=== PATIENT | female | born 1965 | race Caucasian/White ===

== ENCOUNTER 2016-09-06 09:16 | Emergency (ER) | payer OTHER ==
--- NOTE | 2016-09-06 09:38 | Emergency Department Record ---
History of Present Illness - General Chief complaint: Flank Pain Stated complaint: FLANK PAIN/THINKS HAS KIDNEY STONE Time Seen by Provider: 09/06/16 09:29 Source: Patient Mode of Arrival: Ambulatory Limitations: No limitations - History of Present Illness Initial comments: 51 yo female presents with one week of left flank pain that comes and goes. No fevers or chills. No vomiting or diarrhea. She has a history in the past of renal stones that required removal. No cough or cold symptoms currently. Prior urologist was at [facility] [place]. She has a history of Arnold Chiari Malformation, renal stones. MD Complaint: Other (Flank pain) Onset/Timin -: Week(s) Radiation: L flank, R flank Severity: Moderate Severity scale (1-10): 8 Quality: Aching, Cramping Consistency: Constant Improves with: None Worsens with: None Patient : No Associated Symptoms: Denies other symptoms - Related Data Home Medications Medication Instructions Recorded Confirmed Last Taken Omeprazole [Omeprazole] 10 mg PO QHS 01/01/15 09/06/16 09/05/16 Fluoxetine HCl [Prozac] 40 mg PO DAILY cap 02/17/16 09/06/16 09/05/16 Zolpidem Tartrate [Ambien] 5 mg PO DAILY PRN tab 02/17/16 09/06/16 09/05/16 Bupropion HCl [Wellbutrin Xl] 150 mg PO QD tab 06/14/16 09/06/16 09/05/16 Estradiol/Norethindrone Acet 1 patch TD 2XWEEK patch 06/14/16 09/06/16 09/05/16 [Combipatch 0.05-0.14 Mg Ptch] Previous Rx's Medication Instructions Recorded Cyclobenzaprine HCl [Flexeril] 10 mg PO QHS #20 tab 09/06/16 Allergies Allergy/AdvReac Type Severity Reaction Status Date / Time Sulfa (Sulfonamide Allergy Mild HIVES Unverified 09/06/16 10:21 Antibiotics) clarithromycin [From Biaxin] AdvReac NAUSEA Unverified 09/06/16 10:21 Travel Screening - Travel/Exposure Within Last 30 Days Have you traveled within the last 30 days?: No - Travel/Exposure Within Last Year Have you traveled outside the [place] in the last year?: No - Additonal Travel Details Have you been exposed to anyone with a communicable illness?: No - Travel Symptoms Symptom Screening: None Review of Systems Constitutional: Denies: Chills, Fever, Malaise, Weakness Eyes: Denies: Eye discharge, Eye pain, Photophobia, Vision change ENT: Denies: Congestion, Throat pain Respiratory: Denies: Cough, Dyspnea, Hemoptysis, Stridor, Wheezes Cardiovascular: Denies: Chest pain, Palpitations, Syncope Endocrine: Denies: Fatigue Gastrointestinal: Denies: Abdominal pain, Diarrhea, Nausea, Vomiting Genitourinary: Denies: Dysuria, Urgency Musculoskeletal: Reports: Back pain. Denies: Arthralgia, Joint swelling, Myalgia, Other Neurological: Denies: Confusion, Headache, Numbness, Tremors, Vertigo, Weakness Psychiatric: Denies: Anxiety Hematological/Lymphatic: Denies: Blood Clots, Easy bleeding, Easy bruising, Swollen glands Past Medical History - SOCIAL HISTORY Smoking Status: Never smoker - RESPIRATORY Hx Respiratory Disorders: No - CARDIOVASCULAR Hx Cardio Disorders: No - NEURO Hx Neuro Disorders: Yes Hx Headaches: Yes Hx of Migraines: Yes Comment:: Chiari Malformation - GI Hx GI Disorders: No - Hx Genitourinary Disorders: Yes Hx Kidney Stones: Yes - ENDOCRINE Hx Endocrine Disorders: No Hx Diabetes: (Gestational diabetes) - MUSCULOSKELETAL Hx Musculoskeletal Disorders: No - PSYCH Hx Psych Problems: No - HEMATOLOGY/ONCOLOGY Hx Hematology/Oncology Disorders: No Family Medical History Hx Cancer: Grandparents Hx HTN: Father Hx Stroke: Father Physical Exam - General General Appearance: Alert, Oriented x3, Cooperative, No acute distress Limitations: No limitations - Head Head exam: Normal inspection - Eye Eye exam: Normal appearance. negative: Conjunctival injection - ENT ENT exam: Normal exam Ear exam: Normal external inspection Nasal Exam: Normal inspection Mouth exam: Normal external inspection Teeth exam: Normal inspection Throat exam: Normal inspection - Neck Neck exam: Normal inspection - Respiratory Respiratory exam: Normal lung sounds bilaterally. negative: Respiratory distress - Cardiovascular Cardiovascular Exam: Regular rate, Normal rhythm, Normal heart sounds - GI/Abdominal GI/Abdominal exam: Soft. negative: Diminished bowel sounds, Distended, Pulsatile mass - Rectal Rectal exam: Deferred - exam: Deferred - Extremities Extremities exam: Normal inspection, Full ROM, Normal capillary refill. negative: Tenderness - Back Back exam: Reports: CVA tenderness (L), Full ROM. Denies: Rash noted, Tenderness - Neurological Neurological exam: Alert, Normal gait, Oriented X3 - Psychiatric Psychiatric exam: Normal affect, Normal mood. negative: Anxious, Depressed - Skin Skin exam: Dry, Intact, Normal color, Warm Course Vital Signs 09/06/16 09:22 Temperature 98.5 F Pulse Rate 84 Respiratory 20 Rate Blood Pressure 137/94 Pulse Ox 96 - Reevaluation(s) Reevaluation #1: The labs were reviewed No acute changes The patient has returned from CT The UA is negative for acute changes. 09/06/16 10:24 Reevaluation #2: The CT scan was negative for any acute intra abdominal process. No renal stones. No obstructive uropathy. No acute changes. The results were discussed with the patient We discussed supportive treatment at home and a follow up plan with the PCP if the pain persists. 09/06/16 10:32 Medical Decision Making - Lab Data Result diagrams: 09/06/16 09:50 09/06/16 09:50 Disposition Disposition: Discharge Clinical Impression: Flank pain Disposition: Home, Self-Care Condition: (1) Good Instructions: Flank Pain (ED) Additional Instructions: Return if you have any fever, nausea, vomiting, weakness, numbness or shooting pain Call your doctor for close follow up of your pain if it continues. Prescriptions: Cyclobenzaprine HCl [Flexeril] 10 mg PO QHS #20 tab Referrals: CHUCK HOSKINS [Primary Care Provider] - Forms: Patient Portal Access Time of Disposition: 10:34
[2016-09-06 10:09] LABS: BASO % 0.4 % (0-6); EOS % 3.5 % (0-6); GRAN % 63.9 % (47-80); HEMATOCRIT 39.5 % (35.0-47.0); HEMOGLOBIN 13.2 gm/dl (11.6-16.0); LYMPH % 25.2 % (16-45); MEAN CELL VOLUME 93.6 fl (81-97); MEAN CORPUSCULAR HEMOGLOBIN 31.3 pg (27-33); MEAN CORPUSCULAR HGB CONC 33.4 g/dl (32-36); MEAN PLATELET VOLUME 10.3 fl (7.4-10.4); PLATELET COUNT 196 K/uL (130-400); RED BLOOD COUNT 4.22 M/uL (3.80-5.40); RED CELL DISTRIBUTION WIDTH 13.8 % (11.5-14.5); URINE APPEARANCE CLEAR; URINE BILIRUBIN NEGATIVE (NEGATIVE); URINE BLOOD NEGATIVE (NEGATIVE); URINE COLOR YELLOW; URINE GLUCOSE (UA) NEGATIVE (NEGATIVE); URINE KETONE NEGATIVE (NEGATIVE); URINE LEUKOCYTE ESTERASE NEGATIVE (NEGATIVE); URINE NITRITE NEGATIVE (NEGATIVE); URINE PROTEIN NEGATIVE (NEGATIVE); URINE UROBILINOGEN 0.2 E.U./dL (0.20 - 1.00); WHITE BLOOD COUNT W/O DIFF 5.7 K/uL (4.2-12.2)
[2016-09-06] MEDS ORDERED: KETOROLAC 30 MG/ML VIAL IVP ONE (10:13)
[2016-09-06 10:20] LABS: ANION GAP 12.2 (7-16); BLOOD UREA NITROGEN 13 mg/dL (7-17); CARBON DIOXIDE 24.8 mmol/L (22-30); CREATININE 0.7 mg/dL (0.52-1.04); EST GLOMERULAR FILTRATION RATE > 60 ml/min; GLUCOSE,RANDOM 100 mg/dL (70-110)
--- NOTE | 2016-09-09 13:38 | CT SCAN REPORT ---
EXAM: CT OF THE ABDOMEN AND PELVIS WITHOUT CONTRAST HISTORY: LEFT FLANK PAIN FOR ONE WEEK. KIDNEY STONE HISTORY. TECHNIQUE: Thin collimation helical CT examination of the abdomen and pelvis was performed without oral or intravenous contrast administration. Lack of oral and IV contrast utilization limits evaluation of the bowel and solid viscera respectively. Comparison: CT of the abdomen and pelvis without contrast dated 07/09/14. FINDINGS: There is minor dependent atelectasis in each lung base. The visualized lung bases are otherwise clear and there is no pleural or pericardial effusion. The heart is not enlarged. There is minor elevation of the right hemidiaphragm. The liver, spleen, pancreas, and adrenal glands are normal in appearance. The gallbladder is unremarkable. No biliary ductal dilatation is seen. There is a possible small sliding type hiatal hernia. The kidneys are normal in size, position, and are smoothly marginated. No nephrolithiasis nor renal mass is seen. The right renal collecting system pelvis appears somewhat patulous, slightly more pronounced than on the prior examination though this is not grossly dilated and may just relate to fluid status. No ureteral dilatation nor ureteral calculus is seen. No intrinsic urinary bladder abnormality is identified though evaluation is somewhat limited by lack of distention. The uterus is in the midline. No gross bowel dilatation nor bowel wall thickening. The appendix is not visualized with confidence though no inflammatory changes are noted in its expected location. Mild fat density prominence is noted in each inguinal canal consistent with lipomatous change or less likely fat within small inguinal hernia sacs. No new lytic or blastic bone lesion is seen. IMPRESSION: 1. NO CT EVIDENCE OF NEPHROLITHIASIS NOR OBSTRUCTIVE UROPATHY. NO CT EVIDENCE OF AN ACUTE INTRAABDOMINAL NOR INTRAPELVIC PROCESS. 2. MINOR FAT DENSITY PROMINENCE IN EACH INGUINAL CANAL, UNCHANGED CONSISTENT WITH LIPOMATOUS CHANGE OR LESS LIKELY FAT WITHIN SMALL INGUINAL HERNIA SACS. 3. MILD BIBASILAR ATELECTASIS. JOB NUMBER: [id number] [facility]
== END 2016-09-06 10:48 | disposition home or self-care (01) ==
LOC: ER 09:16
DX: R10.32 Left lower quadrant pain (principal); Z87.442 Personal history of urinary calculi
CPT/HCPCS: 99284 ×2; 96374; 85025; 80048; 81003; 74176; J1885

== ENCOUNTER 2018-10-09 17:23 | Emergency (ER) | payer MEDICAID ==
--- NOTE | 2018-10-09 17:50 | Emergency Department Record ---
History of Present Illness - General Chief complaint: Flank Pain Stated complaint: I THINK I HAVE KIDNEY STONES Time Seen by Provider: 10/09/18 17:43 Source: Patient Mode of Arrival: Ambulatory Limitations: No limitations - History of Present Illness Initial comments: The patient is here due to intermittent flank pain L>R for 4 days associated with mild nausea but no vomiting, fever, or dysuria. The patient has a hx of kidney stones so she called her Urologist who told her to go to the ER. The patient denies any diarrhea, CP, or SOB. MD Complaint: Other Onset/Timin -: Days(s) Severity: Moderate Severity scale (1-10): 8 Quality: Aching, Cramping Consistency: Constant, Intermittent Patient : No - Related Data Allergies Allergy/AdvReac Type Severity Reaction Status Date / Time Sulfa (Sulfonamide Allergy Mild HIVES Verified 10/09/18 17:43 Antibiotics) clarithromycin [From Biaxin] AdvReac NAUSEA Verified 10/09/18 17:43 Travel Screening - Travel/Exposure Within Last 30 Days Have you traveled within the last 30 days?: No - Travel/Exposure Within Last Year Have you traveled outside the [place] in the last year?: No - Additonal Travel Details Have you been exposed to anyone with a communicable illness?: No - Travel Symptoms Symptom Screening: None Review of Systems Constitutional: Denies: Chills, Fever Eyes: Denies: Eye discharge ENT: Denies: Congestion Respiratory: Denies: Cough, Dyspnea Cardiovascular: Denies: Arrhythmia Endocrine: Denies: Fatigue Gastrointestinal: Reports: Nausea. Denies: Diarrhea, Vomiting Genitourinary: Denies: Dysuria Musculoskeletal: Reports: Back pain. Denies: Arthralgia Skin: Denies: Bruising Past Medical History - SOCIAL HISTORY Smoking Status: Former smoker Alcohol Use: Occasional Drug Use: None - RESPIRATORY Hx Respiratory Disorders: No - CARDIOVASCULAR Hx Cardio Disorders: No - NEURO Hx Neuro Disorders: Yes Hx Headaches: Yes Hx of Migraines: Yes Comment:: Chiari Malformation - GI Hx GI Disorders: No Hx Reflux: Yes - Hx Genitourinary Disorders: Yes Hx Kidney Stones: Yes - ENDOCRINE Hx Endocrine Disorders: No Hx Diabetes: (Gestational diabetes) - MUSCULOSKELETAL Hx Musculoskeletal Disorders: No - PSYCH Hx Psych Problems: No Hx Depression: Yes - HEMATOLOGY/ONCOLOGY Hx Hematology/Oncology Disorders: No Family Medical History Any Significant Family History?: Yes Hx Cancer: Grandparents Hx HTN: Father Hx Stroke: Father Physical Exam - General General Appearance: Alert, Oriented x3, Cooperative, No acute distress - Head Head exam: Atraumatic, Normocephalic, Normal inspection - Eye Eye exam: Normal appearance, PERRL, EOMI - ENT Throat exam: Normal inspection. negative: Tonsillar erythema, Tonsillar exudate - Neck Neck exam: Normal inspection, Full ROM. negative: Lymphadenopathy, Meningismus , Tenderness - Respiratory Respiratory exam: Normal lung sounds bilaterally. negative: Respiratory distress - Cardiovascular Cardiovascular Exam: Regular rate, Normal rhythm, Normal heart sounds - GI/Abdominal GI/Abdominal exam: Soft, Normal bowel sounds. negative: Tenderness - Extremities Extremities exam: Normal inspection, Full ROM, Normal capillary refill. negative: Tenderness - Back Back exam: Reports: CVA tenderness (R) (trace.), CVA tenderness (L) (mild.) - Neurological Neurological exam: Alert, Normal gait. negative: Abnormal gait, Motor sensory deficit Course Vital Signs 10/09/18 17:37 Temperature 97.4 F L Pulse Rate 72 Respiratory 20 Rate Blood Pressure 138/82 Pulse Ox 97 - Reevaluation(s) Reevaluation #1: The patient is doing very well at this time. She is resting comfortably with no significant pain or discomfort presently. I did discuss the neg CT and UA for kidney stones or infection and did recommend F/U later this week for recheck. 10/09/18 18:41 Medical Decision Making - Data Complexity MDM Data: Labs Ordered and/or Reviewed, X-Ray Ordered and/or Reviewed - Lab Data Result diagrams: 10/09/18 17:55 10/09/18 17:55 - Radiology Data Radiology results: Report reviewed (CT: Neg for kidney stones or hydro.) Disposition Disposition: Discharge Clinical Impression: Flank pain Disposition: Home, Self-Care Condition: (2) Stable Instructions: Flank Pain (ED) Additional Instructions: Please continue your home pain medicines and drink plenty of fluids. Please see your family doctor later this week for recheck and return to the ER for any worsening symptoms. Forms: Patient Portal Access Time of Disposition: 18:43 Quality - Quality Measures Quality Measures: N/A - Blood Pressure Screening View Details: Yes Does Patient Have Any of the Following: No Blood Pressure Classification: Pre-Hypertensive BP Reading Systolic Measurement: 138 Diastolic Measurement: 82 Screening for High Blood Pressure: < Pre-Hypertensive BP, F/U Documented > [ [id number]] Pre-Hypertensive Follow-up Interventions: Referral to alternative/primary care provider.
[2018-10-09 17:59] LABS: BASO % 0.6 % (0-6); EOS % 3.5 % (0-6); GRAN % 51.7 % (47-80); HEMATOCRIT 37.2 % (35.0-47.0); HEMOGLOBIN 12.3 gm/dl (11.6-16.0); LYMPH % 33.6 % (16-45); MEAN CELL VOLUME 92.3 fl (81-97); MEAN CORPUSCULAR HEMOGLOBIN 30.5 pg (27-33); MEAN CORPUSCULAR HGB CONC 33.1 g/dl (32-36); MONO % 10.6 % (0-9); PLATELET COUNT 191 K/uL (130-400); RED BLOOD COUNT 4.03 M/uL (3.80-5.40); RED CELL DISTRIBUTION WIDTH 14.4 % (11.5-14.5); WHITE BLOOD COUNT W/O DIFF 5.4 K/uL (4.2-12.2)
[2018-10-09 18:00] LABS: URINE APPEARANCE CLEAR; URINE BILIRUBIN NEGATIVE (NEGATIVE); URINE BLOOD TRACE-I (NEGATIVE); URINE COLOR YELLOW; URINE GLUCOSE (UA) NEGATIVE (NEGATIVE); URINE KETONE NEGATIVE (NEGATIVE); URINE LEUKOCYTE ESTERASE NEGATIVE (NEGATIVE); URINE NITRITE NEGATIVE (NEGATIVE); URINE PROTEIN NEGATIVE (NEGATIVE); URINE UROBILINOGEN 0.2 E.U./dL (0.20 - 1.00)
[2018-10-09 18:08] LABS: URINE EPITHELIAL CELLS RARE (FEW); URINE RBC RARE (NONE SEEN); URINE WBC NONE SEEN (0-2/hpf)
[2018-10-09 18:09] LABS: BILIRUBIN,TOTAL < 0.20 mg/dL (0.2-1.0); BLOOD UREA NITROGEN 15 mg/dL (6-20); CREATININE 0.6 mg/dL (0.5-0.9); EST GLOMERULAR FILTRATION RATE > 60 mL/min; TOTAL PROTEIN 6.7 g/dL (6.6-8.7)
[2018-10-09 18:11] LABS: GLUCOSE,RANDOM 88 mg/dL (74-109)
[2018-10-09] MEDS ORDERED: KETOROLAC 30 MG/ML VIAL IVP ONE (18:11)
[2018-10-09 18:14] LABS: ALBUMIN 4.3 g/dL (4.0-5.0); ALKALINE PHOSPHATASE 84 U/L (35-104); ALT/SGPT 30 U/L (<33); AST/SGOT 22 U/L (10.0-35.0); BILIRUBIN,DIRECT < 0.2 mg/dL (0-0.3)
--- NOTE | 2018-10-11 20:21 | CT SCAN REPORT ---
EXAM: CT SCAN ABDOMEN/PELVIS WO CONTRAST HISTORY: BILATERAL FLANK PAIN. TECHNIQUE: Thin-collimation helical CT examination of the abdomen and pelvis is performed without oral or intravenous contrast administration. Lack of oral and IV contrast utilization limits evaluation of the bowel and solid viscera, respectively. COMPARISON: CT abdomen and pelvis without contrast dated 09/06/2016. FINDINGS: Mild dependent atelectasis in each lung base. The lung bases are otherwise clear and there is no pleural or pericardial effusion. The heart is not enlarged. The liver, spleen, pancreas, and adrenal glands are normal in appearance. No definite calcified gallstone or gallbladder wall thickening. No biliary ductal dilatation. The kidneys are normal in size and position and are smoothly marginated. No nephrolithiasis nor renal mass. The renal collecting systems are normal in caliber throughout. No ureteral calculus is identified, though the distal ureters are not well-delineated from adjacent unopacified structures at the level of the pelvis. Several tiny calcifications are again noted scattered within the pelvis, likely vascular in origin. There is also vascular calcification within the gonadal veins, stable. No intraabdominal nor retroperitoneal lymphadenopathy. The abdominal aorta and iliac arteries are normal in caliber. No pelvic mass, lymphadenopathy, or free pelvic fluid. The uterus is near the midline and normal in size. No intrinsic urinary bladder abnormality. No gross bowel dilatation or nor bowel wall thickening. Occasional colonic diverticula are questioned without evidence of diverticulitis. The appendix is not visualized with confidence, though no inflammatory changes are noted in its expected location. Minor fat-density prominence again noted within the inguinal canals consistent with lipomas or less likely fat within small inguinal hernia sacs. No new lytic or blastic bone lesion. A small bone island is again noted within the right sacral ala. There is redemonstration of a tiny fat-filled umbilical hernia. IMPRESSION: 1. NO CT EVIDENCE OF NEPHROLITHIASIS NOR OBSTRUCTIVE UROPATHY. 2. NO CT EVIDENCE OF AN ACUTE INTRAABDOMINAL NOR INTRAPELVIC PROCESS. 3. MINOR DEPENDENT ATELECTASIS IN EACH LUNG BASE. JOB NUMBER: [id number] [facility]
== END 2018-10-09 19:07 | disposition home or self-care (01) ==
LOC: ER 17:23
DX: R10.84 Generalized abdominal pain (principal); R11.0 Nausea; Z87.442 Personal history of urinary calculi
CPT/HCPCS: 74176; 80048; 80076; 81001; 85025; 96374; 99284; J1885

== ENCOUNTER 2019-03-02 07:33 | Day surgery (SDC) | payer MEDICAID ==
[2019-03-02] MEDS ORDERED: PROPOFOL 10 MG/ML VIAL IV ONE (07:34)
[2019-03-02] MEDS ORDERED: LIDOCAINE 2% MDV (20MG/ML) 20ML VIAL IV ONE (07:34)
[2019-03-02] MEDS ORDERED: FENTANYL PF 100MCG/2ML VIAL IV ONE (07:34)
--- NOTE | 2019-03-05 13:00 | Operative Note ---
SURGEON: Alexander Stark MD OPERATION: 1. ESOPHAGOGASTRODUODENOSCOPY. 2. COLONOSCOPY. INDICATIONS: This is a 53-year-old female with long-term history of gastroesophageal reflux disease and average risk for colorectal cancer who presented for both esophagogastroduodenoscopy and colonoscopy. POSTOPERATIVE DIAGNOSES: 1. Normal esophagus. 2. Mild gastritis. 3. Normal duodenum. 4. Normal colonic and terminal ileal mucosa. ANESTHESIA: Sedation is per Anesthesia. Pulse oximetry was monitored throughout the procedure to maintain O2 saturation of 90% or greater. Supplemental oxygen was administered via nasal cannula. Cardiac and vital signs were monitored throughout the duration of the procedure, and they were stable. The procedures of esophagogastroduodenoscopy and colonoscopy and risks and benefits of the procedures, including the risk of bleeding and perforation, among others, were explained to the patient who voiced understanding and agreed to have the procedures done. Physical examination was performed, and the patient was found stable for sedation. PROCEDURE: The patient was placed in the left lateral position. Sedation was initiated. A plastic bite block was inserted into the oral cavity. The Olympus [id number] gastroscope was introduced into the oral cavity and advanced to the proximal esophagus without difficulty. The esophageal mucosa was carefully examined upon introduction of the gastroscope. The proximal and mid and distal esophageal mucosa appeared normal. The gastroscope was then advanced into the stomach, and surveillance of the stomach revealed mild erythema along the gastric body and antrum but no ulcers were noted. The gastroscope was then advanced to the descending duodenum without difficulty. The duodenal bulb and descending duodenum appeared normal. The gastroscope was then withdrawn into the stomach and retroflexion was performed. There were no other lesions noted. The gastroscope was then withdrawn while carefully examining the gastric and esophageal mucosa. No other lesions noted. Multiple gastric biopsies were obtained. The patient remained with stable vital signs and was repositioned for colonoscopy. A digital rectal exam was performed and showed some mild external hemorrhoids with no palpable rectal masses. An Olympus [id number]-180AL colonoscope was inserted into the rectum under direct visualization. It was advanced to the cecum without difficulty. The ileocecal valve and appendiceal orifice were identified and photographed. The colonic mucosa was carefully examined upon introduction of the colonoscope. There were no lesions noted. The colonoscope was then withdrawn while carefully examining the colonic mucosal surfaces. No lesions were noted. In the rectum, retroflexion was performed and grade 1 internal hemorrhoids were noted. The colonoscope was then withdrawn and the procedures were terminated. The patient tolerated the procedure well without any immediate complications. The patient remained with stable vital signs and was transferred to the recovery room. RECOMMENDATIONS: 1. The patient should be on a high-fiber diet. 2. The patient is to have a repeat colonoscopy for screening in 10 years. Thank you for allowing me to participate in the care of your patient. ALICE
== END 2019-03-02 09:13 | disposition home or self-care (01) ==
LOC: HOP 07:33
PROVIDERS: ATTEND Internal Medicine Gastroenterology
DX: Z12.11 Encounter for screening for malignant neoplasm of colon (principal); K21.9 Gastro-esophageal reflux disease without esophagitis; K29.50 Unspecified chronic gastritis without bleeding
CPT/HCPCS: 00813; G0121